=== PATIENT | female | born 1980 | race Caucasian/White ===

== ENCOUNTER 2018-05-11 19:49 | Emergency (ER) | payer BC ==
[2018-05-11] MEDS ORDERED: Famotidine IV* 10 MG/ML 2 ML (20 mg) IV SLOW PU ONE (19:57)
[2018-05-11] MEDS ORDERED: EPINEPHrine AMP 1 MG/ML IM ONE (19:57)
[2018-05-11] MEDS ORDERED: Dexamethasone IV* 4 MG/ML 1 ML (4 MG) IV SLOW PU ONE (19:58)
[2018-05-11] MEDS ORDERED: Dexamethasone TAB* 4 MG PO ONE (20:13)
[2018-05-11] MEDS ORDERED: Famotidine TAB* 20 MG PO ONE (20:14)
--- NOTE | 2018-05-11 20:53 | ED ---
Allergic Reaction/Systemic - HPI Summary HPI Summary: The patient is a 37 y/o F presenting to [facility] accompanied by father c/o allergic reaction from accidental ingestion of cashews at 19:30 today. 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 She states that her lips have started to swell and become tingly with some swelling in the throat and itchiness in her mouth, but she has not had any rashes or hives, which is normal for her reactions. She has taken Benadryl to try to relieve the allergic reaction to little relief. This is abnormal for her reactions because the medication usually acts fast. She is not currently in any pain, but she reports that this is the most fast- acting allergic reaction she has had. She does not have an epinephrine pen for this allergy. - History of Current Complaint Chief Complaint: EDAllergicReaction Hx Obtained From: Patient Onset/Duration: Sudden Onset, Started minutes ago - at 19:30, Still Present Timing: Constant, Lasting Minutes Severity Initially: Mild Severity Currently: Mild Pain Intensity: 0 Pain Scale Used: 0-10 Numeric Character: Swelling - in lips and throat Aggravating Factor(s): Nothing Alleviating Factor(s): Nothing Associated Signs And Symptoms: Positive: Other: - throat swelling, lip swelling and tingling, itchy mouth. Negative: Rash - or hives - Related Hx Possible Reaction To: Food - cashews Prior Episode Dx as Allergic Reaction to: Same/Other: tree nut allergic reaction - Allergies/Home Medications Allergies/Adverse Reactions: Allergies Allergy/AdvReac Type Severity Reaction Status Date / Time Tree Nuts Allergy Anaphylatic Verified 05/11/18 19:55 Shock PMH/Surg Hx/FS Hx/Imm Hx Endocrine/Hematology History: Denies: Hx Diabetes Cardiovascular History: Denies: Hx Hypertension Sensory History: Denies: Hx Deafness Opthamlomology History: Denies: Hx Legally Blind EENT History: Denies: Hx Deafness Infectious Disease History: No Infectious Disease History: Denies: Traveled Outside the [place] in Last 30 Days - Family History Known Family History: Negative: Diabetes - Social History Alcohol Use: None Substance Use Type: Reports: None Smoking Status (MU): Never Smoked Tobacco Review of Systems Positive: Other - itching in mouth, mild lip and throat swelling, tingling in lips Positive: Other - NEGATIVE: hives or rashes All Other Systems Reviewed And Are Negative: Yes Physical Exam - Summary Physical Exam Summary: Appearance: Well-appearing, Well-nourished, lying in bed comfortably Skin: Warm, dry, no obvious rash, no skin lesions Eyes: sclera anicteric, no conjunctival pallor ENT: mucous membranes moist, pharynx appears normal, no swelling in oral pharynx , no lingual swelling Neck: Supple, nontender Respiratory: Clear to auscultation, no signs of respiratory distress Cardiovascular: Normal S1, S2. No murmurs. Normal distal pulses in tibial and radial bilaterally. Abdomen: Soft, nontender, normal active bowel sounds present Musculoskeletal: Normal, Strength/ROM Intact Neurological: A&Ox3, awake and alert, mentation is normal, speech is fluent and appropriate Psychiatric: affect is normal, does not appear anxious or depressed Triage Information Reviewed: Yes Vital Signs On Initial Exam: Initial Vitals Temp Pulse Resp BP Pulse Ox 99.1 F 63 18 164/108 100 05/11/18 19:54 05/11/18 19:54 05/11/18 19:54 05/11/18 19:54 05/11/18 19:54 Vital Signs Reviewed: Yes Diagnostics - Vital Signs Vital Signs Temp Pulse Resp BP Pulse Ox 05/11/18 20:00 63 100 05/11/18 19:55 164/108 05/11/18 19:54 99.1 F 63 18 164/108 100 - Laboratory Lab Statement: Any lab studies that have been ordered have been reviewed, and results considered in the medical decision making process. Allergic Reaction Course/Dx - Diagnoses Differential Diagnosis/HQI/PQRI: Positive: Airway Obstruction, Anaphylaxis, Angioedema, Bronchospasm Provider Diagnoses: Anaphylaxis Discharge - Sign-Out/Discharge Documenting (check all that apply): Patient Departure - Pt will be discharged home. - Discharge Plan Condition: Improved Disposition: HOME Prescriptions: EPINEPHrine [Epipen 2-Toan] 0.3 mg IM ONCE PRN #1 inj PRN Reason: Allergy Symptoms Patient Education Materials: Anaphylaxis (ED) Referrals: [facility] [place] [facility]YSICIAN REFERRAL [Outside] - 3 Days Additional Instructions: Anti-histamines are the mainstay in treating symptoms of allergic reactions such as yours. Benadryl 50 mg every 4-6 hours can be used if you experience recurrent symptoms. Pepcid is a useful adjunct, at a dose of 20 mg twice daily, also OTC. Steroids can be used as well but are not absolutely necessary, and in your case I am comfortable deferring them unless you worsen. - Billing Disposition and Condition Condition: IMPROVED Disposition: Home Attestations Scribe Attestation: This is neptaliibe Valeria Morales documenting for attending Dr. Bonifacio Johnson MD. User Type: Provider with Scribe Provider Attestation: The documentation recorded by the scribe accurately reflects the service I personally performed and the decisions made by me.
[2018-05-11 21:24] VITALS: BP 128/78
== END 2018-05-11 21:31 | disposition home or self-care (01) ==
LOC: ED 19:49
DX: T78.05XA Anaphylactic reaction due to tree nuts and seeds, initial encounter (principal); R22.0 Localized swelling, mass and lump, head; Z91.018 Allergy to other foods
CPT/HCPCS: 96372; 96374; 96375; 99283; A9270-GY; J0171; J1100